=== PATIENT | male | born 1975 | race Caucasian/White ===

== ENCOUNTER 2022-08-02 18:23 | Emergency (ER) | payer MEDICARE ==
[2022-08-02] MEDS ORDERED: Ondansetron PF 4 MG/2 ML Vial ONE (19:25)
[2022-08-02 19:36] LABS: #Eosinphils 0.3 thou/uL (0.0-0.7); #Lymphocytes 1.5 thou/uL (1.20-3.40); #Monocytes 0.8 thou/uL (0.11-0.59); #Neutrophils 8.7 thou/uL (1.40-6.50); %Basophils 0.2 % (0.0-1.0); %Eosinophils 2.2 % (0.0-10.0); %Lymphocytes 13.1 % (21.0-51.0); %Monocytes 7.1 % (0.0-10.0); %Neutrophils 77.4 % (42.0-75.0); Hemoglobin 15.6 g/dL (14.0-18.0); Mean Corpuscular HGB CONC 31.5 g/dL (32.0-36.0); Mean Corpuscular Hemoglobin 30.5 pg (27.0-31.0); Mean Corpuscular Volume 96.8 fl (78.0-98.0); Mean Platelet Volume 8.9 fL (7.4-10.4); Platelet Count 363 10x3/uL (130-400); RBC Distribution Width 14.8 % (11.5-14.5); Red Blood Cell (RBC) Count 5.11 mill/uL (4.70-6.10); White Blood Cell (WBC) Count 11.3 10x3/uL (4.8-10.8)
[2022-08-02 20:02] LABS: ALT (SGPT) 40 U/L (8-55); AST (SGOT) 35 U/L (5-34); Albumin 3.7 g/dL (3.5-5.0); Alkaline Phosphatase 58 U/L (40-110); Anion Gap 12 mmol/L (10-20); BUN (Urea Nitrogen) 15 mg/dL (8.9-20.6); Bilirubin, Total 0.6 mg/dL (0.2-1.2); Calc. Creatinine Clearance 0 mL/min (70-130); Calcium 8.7 mg/dL (7.8-10.44); Carbon Dioxide 27 mmol/L (22-29); Chloride 102 mmol/L (98-107); Estimated GFR 109; Globulin 3.9 g/dL (2.4-3.5); Glucose 100 mg/dL (70-105); Lipase 6 U/L (8-78); Potassium 4.3 mmol/L (3.5-5.1); Protein, Total 7.6 g/dL (6.0-8.3); Sodium 137 mmol/L (136-145)
[2022-08-02 22:24] LABS: Bilirubin Negative (Negative); Blood, Urine Negative (Negative); Clarity Clear (Clear); Glucose, Urine (Dipstick) Normal (Negative); Ketone, Urine Negative (Negative); Leukocyte Negative Leu/uL (Negative); Nitrite Negative (Negative); Protein, Urine (Dipstick) Negative (Neg-Trace); Specific Gravity, Urine 1.025 (1.002-1.036); Urobilinogen Normal mg/dL (Less than 2)
== END 2022-08-02 22:38 | disposition home or self-care (01) ==
LOC: ERS 18:23
DX: R55 Syncope and collapse (principal); R11.2 Nausea with vomiting, unspecified; I10 Essential (primary) hypertension; F17.220 Nicotine dependence, chewing tobacco, uncomplicated
CPT/HCPCS: 36415; 70450; 71045; 80053; 81003; 83605; 83690; 84484; 85025; 87040; 93005; 96361; 96374; J2405

== ENCOUNTER 2022-10-05 18:34 | Inpatient (IN) | payer MEDICARE, OTHER, SELFPAY ==
[~2022-10-05 18:34] MED LIST: Iopamidol-370 76% 500 ML 1 ML ONE
[2022-10-05 19:59] LABS: #Basophils 0.1 thou/uL (0.0-0.2); #Eosinphils 0.8 thou/uL (0.0-0.7); #Lymphocytes 3.9 thou/uL (1.20-3.40); #Monocytes 1.6 thou/uL (0.11-0.59); #Neutrophils 6.6 thou/uL (1.40-6.50); %Basophils 0.6 % (0.0-1.0); %Lymphocytes 30.2 % (21.0-51.0); %Monocytes 12.3 % (0.0-10.0); %Neutrophils 50.8 % (42.0-75.0); Mean Corpuscular HGB CONC 31.3 g/dL (32.0-36.0); Mean Corpuscular Hemoglobin 30.6 pg (27.0-31.0); Mean Corpuscular Volume 97.8 fl (78.0-98.0); Mean Platelet Volume 8.7 fL (7.4-10.4); Platelet Count 364 10x3/uL (130-400); RBC Distribution Width 14.8 % (11.5-14.5); Red Blood Cell (RBC) Count 4.89 mill/uL (4.70-6.10)
[2022-10-05 20:23] LABS: ALT (SGPT) 31 U/L (8-55); AST (SGOT) 25 U/L (5-34); Albumin 3.7 g/dL (3.5-5.0); Alkaline Phosphatase 53 U/L (40-110); Anion Gap 12 mmol/L (10-20); BUN (Urea Nitrogen) 12 mg/dL (8.9-20.6); Bilirubin, Total 0.5 mg/dL (0.2-1.2); Calc. Creatinine Clearance 0 mL/min (70-130); Carbon Dioxide 27 mmol/L (22-29); Chloride 104 mmol/L (98-107); Estimated GFR 73; Globulin 3.3 g/dL (2.4-3.5); Glucose 84 mg/dL (70-105); Potassium 4.4 mmol/L (3.5-5.1); Sodium 139 mmol/L (136-145)
[2022-10-05] MEDS ORDERED: Ketorolac Tromethamine 30 MG/ML VIAL ONE (21:22)
[2022-10-05] MEDS ORDERED: Ipratropium/Albuterol 3 ML NEB ONE (21:22)
[2022-10-05] MEDS ORDERED: Furosemide 40 MG/4 ML VIAL ONE (21:22)
[2022-10-05] MEDS ORDERED: Vancomycin 1.5 GRAM/300 ML BAG 1.5 GM in Premix Bag 1 BAG IVPB SCH (21:30)
[2022-10-05] MEDS ORDERED: Ondansetron ODT 4 MG TAB SL PRN (21:45)
[2022-10-05] MEDS ORDERED: Ondansetron PF 4 MG/2 ML Vial IVP PRN (21:45)
[2022-10-05] MEDS ORDERED: Acetaminophen 325 MG TAB PO PRN (21:45)
[2022-10-05 22:43] LABS: Troponin I 0.017 ng/mL (< 0.028)
[2022-10-05 23:21] LABS: SARS-CoV-2 NAA Rapid Test Not Detected (NotDetected)
[2022-10-05] MEDS ORDERED: guaiFENesin/DM ER PO PRN (23:34)
[2022-10-06 00:25] VITALS: BMI 51.3
[2022-10-06] MEDS: guaiFENesin/DM ER PO PRN (01:46)
[2022-10-06] MEDS: Benzonatate 100 MG CAP PO PRN ×2 (02:02→20:42)
[2022-10-06 02:25] LABS: #Basophils 0.1 thou/uL (0.0-0.2); #Eosinphils 0.7 thou/uL (0.0-0.7); #Lymphocytes 4.1 thou/uL (1.20-3.40); #Monocytes 1.5 thou/uL (0.11-0.59); #Neutrophils 5.8 thou/uL (1.40-6.50); %Basophils 0.6 % (0.0-1.0); %Lymphocytes 33.5 % (21.0-51.0); %Monocytes 12.4 % (0.0-10.0); %Neutrophils 47.5 % (42.0-75.0); Hemoglobin 14.7 g/dL (14.0-18.0); Mean Corpuscular HGB CONC 31.6 g/dL (32.0-36.0); Mean Corpuscular Hemoglobin 30.6 pg (27.0-31.0); Mean Corpuscular Volume 96.6 fl (78.0-98.0); Mean Platelet Volume 8.3 fL (7.4-10.4); Platelet Count 380 10x3/uL (130-400); RBC Distribution Width 14.8 % (11.5-14.5); Red Blood Cell (RBC) Count 4.82 mill/uL (4.70-6.10); White Blood Cell (WBC) Count 12.2 10x3/uL (4.8-10.8)
[2022-10-06 02:50] LABS: Troponin I 0.012 ng/mL (< 0.028)
[2022-10-06 02:56] LABS: Anion Gap 14 mmol/L (10-20); BUN (Urea Nitrogen) 14 mg/dL (8.9-20.6); Calc. Creatinine Clearance 242 mL/min (70-130); Calcium 8.9 mg/dL (7.8-10.44); Carbon Dioxide 26 mmol/L (22-29); Chloride 101 mmol/L (98-107); Estimated GFR 87; Glucose 101 mg/dL (70-105); Potassium 3.8 mmol/L (3.5-5.1); Sodium 137 mmol/L (136-145)
[2022-10-06] MEDS: Vancomycin 1.5 GRAM/300 ML BAG 1.5 GM in Premix Bag 1 BAG IVPB SCH ×3 (04:44→20:10)
[2022-10-06] MEDS: Furosemide 20 MG/2 ML VIAL SLOW IVP SCH ×2 (06:34→13:11)
[2022-10-06] MEDS: Phenytoin Extended Release 100 MG CAP PO SCH (08:39)
[2022-10-06] MEDS ORDERED: FLU VACC QS2022-23(6MOS UP)/PF 60 MCG/0.5 ML SYRINGE IM ONE (09:00)
[2022-10-06] MEDS: Ibuprofen 800 MG TAB PO PRN ×2 (13:18→20:19)
[2022-10-06] MEDS: Gabapentin 300 MG CAP PO SCH (20:10)
[2022-10-06] MEDS: Cyclobenzaprine 10 MG TAB PO PRN (20:20)
[2022-10-06] MEDS: Ipratropium/Albuterol 3 ML NEB NEB PRN ×2 (21:25→23:32)
[2022-10-07 03:40] LABS: #Basophils 0.1 thou/uL (0.0-0.2); #Lymphocytes 3.2 thou/uL (1.20-3.40); #Monocytes 1.4 thou/uL (0.11-0.59); #Neutrophils 6.7 thou/uL (1.40-6.50); %Basophils 0.8 % (0.0-1.0); %Eosinophils 7.8 % (0.0-10.0); %Lymphocytes 25.8 % (21.0-51.0); %Neutrophils 54.6 % (42.0-75.0); Hemoglobin 15.7 g/dL (14.0-18.0); Mean Corpuscular HGB CONC 31.4 g/dL (32.0-36.0); Mean Corpuscular Hemoglobin 31.1 pg (27.0-31.0); Mean Platelet Volume 8.3 fL (7.4-10.4); Platelet Count 365 10x3/uL (130-400); RBC Distribution Width 14.9 % (11.5-14.5); Red Blood Cell (RBC) Count 5.04 mill/uL (4.70-6.10); White Blood Cell (WBC) Count 12.3 10x3/uL (4.8-10.8)
[2022-10-07 03:58] LABS: Anion Gap 14 mmol/L (10-20); BUN (Urea Nitrogen) 14 mg/dL (8.9-20.6); Calc. Creatinine Clearance 288 mL/min (70-130); Carbon Dioxide 24 mmol/L (22-29); Chloride 103 mmol/L (98-107); Estimated GFR 107; Glucose 110 mg/dL (70-105); Potassium 4.1 mmol/L (3.5-5.1); Sodium 137 mmol/L (136-145)
[2022-10-07] MEDS: Vancomycin 1.5 GRAM/300 ML BAG 1.5 GM in Premix Bag 1 BAG IVPB SCH (04:51)
[2022-10-07] MEDS: Furosemide 20 MG/2 ML VIAL SLOW IVP SCH (05:37)
[2022-10-07] MEDS: Benzonatate 100 MG CAP PO PRN ×3 (06:11→21:58)
[2022-10-07] MEDS: Gabapentin 300 MG CAP PO SCH ×2 (08:10→21:03)
[2022-10-07] MEDS: Cyclobenzaprine 10 MG TAB PO SCH (08:11)
[2022-10-07] MEDS: Phenytoin Extended Release 100 MG CAP PO SCH (08:11)
[2022-10-07] MEDS: Ipratropium/Albuterol 3 ML NEB NEB PRN (08:46)
[2022-10-07] MEDS ORDERED: PHENYTOIN 30 MG PO SCH (09:00)
[2022-10-07] MEDS ORDERED: Bisoprolol Fumarate/HCTZ 10 mg/6.25 mg Tablet PO SCH (09:00)
[2022-10-07] MEDS ORDERED: VANCOMYCIN 1.75 GM/500 ML BAG 1.75 GM in Premix Bag 1 BAG IVPB SCH (09:00)
[2022-10-07] MEDS ORDERED: Albuterol 200 PUFF (6.7GM INHALER) INH PRN (12:13)
[2022-10-07] MEDS ORDERED: Mag-Al Plus 1200 MG/1200 MG/120 MG/30 ML UDCUP PO PRN (12:14)
[2022-10-07] MEDS ORDERED: Ibuprofen 800 MG TAB PO PRN (12:15)
[2022-10-07] MEDS ORDERED: Ibuprofen 200 MG TAB PO PRN (12:20)
[2022-10-07] MEDS: Ipratropium/Albuterol 3 ML NEB NEB SCH ×2 (12:29→18:51)
[2022-10-07] MEDS: methylPREDNISolone Sod Succ 40 MG VIAL IVP SCH ×2 (13:55→21:04)
[2022-10-07] MEDS: Furosemide 40 MG TAB PO SCH (13:55)
[2022-10-07] MEDS: guaiFENesin/DM ER PO PRN (13:55)
[2022-10-07] MEDS ORDERED: Furosemide 20 MG TAB PO SCH (14:00)
[2022-10-07] MEDS: Cephalexin 250 MG CAP PO SCH ×2 (17:53→21:03)
[2022-10-07] MEDS: Cyclobenzaprine 10 MG TAB PO PRN (21:08)
[2022-10-08] MEDS: guaiFENesin/DM ER PO PRN ×2 (01:38→21:04)
[2022-10-08 04:57] LABS: #Lymphocytes 2.3 thou/uL (1.20-3.40); #Monocytes 0.7 thou/uL (0.11-0.59); %Basophils 0.1 % (0.0-1.0); %Eosinophils 0.2 % (0.0-10.0); %Lymphocytes 14.4 % (21.0-51.0); %Monocytes 4.3 % (0.0-10.0); Hemoglobin 15.4 g/dL (14.0-18.0); Mean Corpuscular HGB CONC 32.1 g/dL (32.0-36.0); Mean Corpuscular Hemoglobin 31.4 pg (27.0-31.0); Mean Corpuscular Volume 97.6 fl (78.0-98.0); Platelet Count 376 10x3/uL (130-400); RBC Distribution Width 14.8 % (11.5-14.5); Red Blood Cell (RBC) Count 4.92 mill/uL (4.70-6.10)
[2022-10-08] MEDS: Benzonatate 100 MG CAP PO PRN ×2 (05:03→21:04)
[2022-10-08] MEDS: methylPREDNISolone Sod Succ 40 MG VIAL IVP SCH ×3 (05:03→21:58)
[2022-10-08 05:14] LABS: Anion Gap 15 mmol/L (10-20); BUN (Urea Nitrogen) 18 mg/dL (8.9-20.6); Calc. Creatinine Clearance 282 mL/min (70-130); Calcium 9.6 mg/dL (7.8-10.44); Carbon Dioxide 26 mmol/L (22-29); Chloride 99 mmol/L (98-107); Estimated GFR 106; Glucose 141 mg/dL (70-105); Potassium 4.3 mmol/L (3.5-5.1); Sodium 136 mmol/L (136-145)
[2022-10-08] MEDS: Ipratropium/Albuterol 3 ML NEB NEB SCH ×3 (06:41→19:02)
[2022-10-08] MEDS ORDERED: Sodium Chloride 0.9% 1,000 ML IV SCH (07:30)
[2022-10-08] MEDS: Bisoprolol Fumarate 5 MG TAB PO SCH (09:21)
[2022-10-08] MEDS: Cephalexin 250 MG CAP PO SCH ×4 (09:22→21:58)
[2022-10-08] MEDS: Cyclobenzaprine 10 MG TAB PO SCH (09:22)
[2022-10-08] MEDS: Furosemide 40 MG TAB PO SCH ×2 (09:23→14:38)
[2022-10-08] MEDS: Gabapentin 300 MG CAP PO SCH ×2 (09:23→21:04)
[2022-10-08] MEDS: Phenytoin Extended Release 100 MG CAP PO SCH (09:24)
[2022-10-08] MEDS ORDERED: Albuterol 200 PUFF (6.7GM INHALER) INH SCH (19:00)
[2022-10-08] MEDS: Cyclobenzaprine 10 MG TAB PO PRN (21:05)
[2022-10-09] MEDS: Benzonatate 100 MG CAP PO PRN (04:58)
[2022-10-09] MEDS: methylPREDNISolone Sod Succ 40 MG VIAL IVP SCH (05:00)
[2022-10-09] MEDS: Ipratropium/Albuterol 3 ML NEB NEB SCH ×2 (07:22→13:20)
[2022-10-09 08:30] VITALS: TEMP 97.9
[2022-10-09] MEDS: Cephalexin 250 MG CAP PO SCH (09:21)
[2022-10-09] MEDS: Gabapentin 300 MG CAP PO SCH (09:22)
[2022-10-09] MEDS: Bisoprolol Fumarate 5 MG TAB PO SCH (09:22)
[2022-10-09] MEDS: Phenytoin Extended Release 100 MG CAP PO SCH (09:22)
[2022-10-09] MEDS: Furosemide 40 MG TAB PO SCH (09:22)
[2022-10-09] MEDS: Cyclobenzaprine 10 MG TAB PO SCH (09:22)
[2022-10-09 11:49] VITALS: BP 138/81
== END 2022-10-09 13:55 | disposition home or self-care (01) | DRG 205 ==
LOC: ERS 18:34 → 2NO 21:37
PROVIDERS: ADMIT Internal Medicine; ATTEND Internal Medicine
PROC: 5A09357 Assistance with Respiratory Ventilation, Less than 24 Consecutive Hours, Continuous Positive Airway Pressure (ICD-10-PCS; principal; 2022-10-05)
DX: E66.2 Morbid (severe) obesity with alveolar hypoventilation (principal); J96.21 Acute and chronic respiratory failure with hypoxia; L03.311 Cellulitis of abdominal wall; Z68.43 Body mass index [BMI] 50.0-59.9, adult; Z20.822 Contact with and (suspected) exposure to COVID-19; I10 Essential (primary) hypertension; G40.909 Epilepsy, unspecified, not intractable, without status epilepticus; K21.9 Gastro-esophageal reflux disease without esophagitis; G62.9 Polyneuropathy, unspecified; F17.220 Nicotine dependence, chewing tobacco, uncomplicated; R91.8 Other nonspecific abnormal finding of lung field; Z28.21 Immunization not carried out because of patient refusal; Z88.8 Allergy status to other drugs, medicaments and biological substances; Z86.711 Personal history of pulmonary embolism; Z86.718 Personal history of other venous thrombosis and embolism; Z85.47 Personal history of malignant neoplasm of testis; Z90.79 Acquired absence of other genital organ(s); Z90.49 Acquired absence of other specified parts of digestive tract; Z98.890 Other specified postprocedural states; Z82.3 Family history of stroke; Z80.9 Family history of malignant neoplasm, unspecified; Z91.199 Patient's noncompliance with other medical treatment and regimen due to unspecified reason; Z99.89 Dependence on other enabling machines and devices
CPT/HCPCS: 36415; 71045; 71275; 80048; 80053; 80202; 83605; 83880; 84484; 85025; 86140; 87040; 93005; 93306; 94640; 96374; 96375; J1650; J1885; J1940; J2920; J3370; J7050; J7611; J7620; Q9967

== ENCOUNTER 2022-10-30 18:44 | Inpatient (IN) | payer OTHER ==
[2022-10-30 19:38] LABS: Mean Corpuscular Hemoglobin 31.6 pg (27.0-31.0); Mean Corpuscular Volume 98.9 fl (78.0-98.0); Mean Platelet Volume 9.5 fL (7.4-10.4); Platelet Count 198 10x3/uL (130-400); RBC Distribution Width 13.8 % (11.5-14.5); Red Blood Cell (RBC) Count 4.73 mill/uL (4.70-6.10); White Blood Cell (WBC) Count 13.2 10x3/uL (4.8-10.8)
[2022-10-30 19:54] LABS: ALT (SGPT) 43 U/L (8-55); AST (SGOT) 26 U/L (5-34); Albumin 4.1 g/dL (3.5-5.0); Alkaline Phosphatase 56 U/L (40-110); Anion Gap 15 mmol/L (10-20); BUN (Urea Nitrogen) 16 mg/dL (8.9-20.6); Bilirubin, Total 0.5 mg/dL (0.2-1.2); Calc. Creatinine Clearance 0 mL/min (70-130); Carbon Dioxide 25 mmol/L (22-29); Chloride 103 mmol/L (98-107); Estimated GFR 105; Globulin 3.7 g/dL (2.4-3.5); Glucose 86 mg/dL (70-105); Potassium 4.4 mmol/L (3.5-5.1); Protein, Total 7.8 g/dL (6.0-8.3); Sodium 139 mmol/L (136-145)
[2022-10-30 20:06] LABS: Band 1 % (5-11); Eosinophils 8 % (0-10); Lymphocytes 19 % (21-51); MDiff Complete? YES; Monocytes 9 % (0-10); Neutrophil 51 % (42-75); Platelet Morphology Comment Appears Adequate; Polychromasia SLIGHT = 2-3 cells (100X) (0-2/hpf); Reactive Lymphocytes 11 % (0-10)
[2022-10-30 20:24] LABS: Bilirubin Negative (Negative); Blood, Urine Negative (Negative); Clarity Clear (Clear); Glucose, Urine (Dipstick) Normal (Negative); Ketone, Urine Negative (Negative); Leukocyte Negative Leu/uL (Negative); Nitrite Negative (Negative); Protein, Urine (Dipstick) Negative (Neg-Trace); Specific Gravity, Urine 1.022 (1.002-1.036); Urobilinogen Normal mg/dL (Less than 2); pH, Urine 6.5 (5.0-9.0)
[2022-10-30] MEDS ORDERED: Furosemide 40 MG/4 ML VIAL ONE (20:50)
[2022-10-30] MEDS ORDERED: Nitroglycerin 2% Ointment 1 INCH/1 GM Packet ONE (20:50)
[2022-10-30] MEDS ORDERED: hydrALAZINE 20 MG/ML VIAL ONE (22:59)
[2022-10-30] MEDS ORDERED: Vancomycin 1 GM/200 ML (FROZEN) BAG ONE (22:59)
[2022-10-30] MEDS ORDERED: Calcium Carbonate 500 MG ChewTAB PO PRN (23:50)
[2022-10-30] MEDS ORDERED: Ondansetron PF 4 MG/2 ML Vial IVP PRN (23:50)
[2022-10-30] MEDS ORDERED: Senokot S 8.6-50 MG TAB PO PRN (23:50)
[2022-10-30] MEDS ORDERED: Acetaminophen 325 MG TAB PO PRN (23:50)
[2022-10-30] MEDS ORDERED: Ondansetron ODT 4 MG TAB PO PRN (23:50)
[2022-10-31] MEDS: HYDROcodone/Acetaminophen 7.5/325 mg Tablet PO PRN ×4 (01:01→20:56)
[2022-10-31] MEDS: Nicotine 14 MG PATCH TD SCH ×2 (01:05→23:26)
[2022-10-31] MEDS: Guaifenesin DM 100-10/5 ML UDCUP PO PRN ×3 (01:05→17:20)
[2022-10-31 01:49] VITALS: BMI 54.2
[2022-10-31] MEDS: Ipratropium/Albuterol 3 ML NEB NEB SCH ×4 (02:31→19:08)
[2022-10-31 05:34] LABS: #Basophils 0.1 thou/uL (0.0-0.2); #Eosinphils 0.9 thou/uL (0.0-0.7); #Lymphocytes 2.8 thou/uL (1.20-3.40); #Monocytes 1.2 thou/uL (0.11-0.59); #Neutrophils 5.8 thou/uL (1.40-6.50); %Basophils 0.9 % (0.0-1.0); %Lymphocytes 26.2 % (21.0-51.0); %Monocytes 10.9 % (0.0-10.0); Hemoglobin 14.2 g/dL (14.0-18.0); Mean Corpuscular Hemoglobin 31.7 pg (27.0-31.0); Mean Platelet Volume 8.6 fL (7.4-10.4); Platelet Count 320 10x3/uL (130-400); RBC Distribution Width 13.9 % (11.5-14.5); Red Blood Cell (RBC) Count 4.49 mill/uL (4.70-6.10); White Blood Cell (WBC) Count 10.7 10x3/uL (4.8-10.8)
[2022-10-31 05:53] LABS: Anion Gap 13 mmol/L (10-20); BUN (Urea Nitrogen) 16 mg/dL (8.9-20.6); Calc. Creatinine Clearance 298 mL/min (70-130); Carbon Dioxide 29 mmol/L (22-29); Chloride 100 mmol/L (98-107); Estimated GFR 105; Glucose 112 mg/dL (70-105); Potassium 3.4 mmol/L (3.5-5.1); Sodium 139 mmol/L (136-145)
[2022-10-31] MEDS: Furosemide 20 MG/2 ML VIAL SLOW IVP SCH ×2 (06:02→14:58)
[2022-10-31] MEDS ORDERED: VANCOMYCIN 2 GRAM/500 ML BAG 2 GM in Premix Bag 1 BAG IVPB SCH ×2 (08:00→16:00)
[2022-10-31] MEDS ORDERED: Potassium Chloride 20 MEQ TAB PO SCH (08:15)
[2022-10-31 08:42] LABS: Magnesium 1.7 mg/dL (1.6-2.6)
[2022-10-31] MEDS: hydrALAZINE 25 MG TAB PO SCH ×2 (08:46→20:57)
[2022-10-31] MEDS: Cefepime 2 GM in Sodium Chloride 0.9% 100 ML IVPB SCH ×2 (10:18→23:26)
[2022-10-31] MEDS ORDERED: Ketorolac Tromethamine 10 MG TAB PO SCH (11:15)
[2022-10-31] MEDS ORDERED: Albuterol 2.5 MG/0.5 ML NEB NEB PRN (14:58)
[2022-10-31] MEDS ORDERED: Ketorolac Tromethamine 10 MG TAB PO PRN (17:47)
[2022-10-31] MEDS: Terazosin HCl 5 MG CAP PO SCH (20:57)
[2022-10-31] MEDS: Phenytoin Extended Release 100 MG CAP PO SCH (20:57)
[2022-10-31 23:46] LABS: Vancomycin, Trough 18.1 ug/mL
[2022-11-01] MEDS: Ketorolac Tromethamine 10 MG TAB PO PRN ×2 (00:28→20:37)
[2022-11-01] MEDS: HYDROcodone/Acetaminophen 7.5/325 mg Tablet PO PRN ×3 (01:13→14:47)
[2022-11-01] MEDS: Ipratropium/Albuterol 3 ML NEB NEB SCH ×4 (01:20→19:25)
[2022-11-01 05:18] LABS: #Basophils 0.1 thou/uL (0.0-0.2); #Lymphocytes 2.6 thou/uL (1.20-3.40); #Monocytes 1.3 thou/uL (0.11-0.59); #Neutrophils 5.1 thou/uL (1.40-6.50); %Basophils 0.6 % (0.0-1.0); %Eosinophils 9.9 % (0.0-10.0); %Lymphocytes 25.4 % (21.0-51.0); %Neutrophils 51.1 % (42.0-75.0); Hemoglobin 13.9 g/dL (14.0-18.0); Mean Corpuscular HGB CONC 31.8 g/dL (32.0-36.0); Mean Corpuscular Hemoglobin 31.6 pg (27.0-31.0); Mean Corpuscular Volume 99.4 fl (78.0-98.0); Mean Platelet Volume 8.5 fL (7.4-10.4); Platelet Count 321 10x3/uL (130-400); RBC Distribution Width 13.7 % (11.5-14.5); Red Blood Cell (RBC) Count 4.41 mill/uL (4.70-6.10)
[2022-11-01] MEDS: Furosemide 20 MG/2 ML VIAL SLOW IVP SCH ×2 (05:22→14:47)
[2022-11-01] MEDS: tiZANidine HCl 4 MG TAB PO PRN ×2 (05:32→20:42)
[2022-11-01] MEDS: Guaifenesin DM 100-10/5 ML UDCUP PO PRN ×2 (05:33→20:38)
[2022-11-01 05:44] LABS: Phosphorus 4.5 mg/dL (2.3-4.7)
[2022-11-01 05:59] LABS: ALT (SGPT) 35 U/L (8-55); AST (SGOT) 23 U/L (5-34); Albumin 3.8 g/dL (3.5-5.0); Alkaline Phosphatase 52 U/L (40-110); Anion Gap 13 mmol/L (10-20); BUN (Urea Nitrogen) 22 mg/dL (8.9-20.6); Bilirubin, Total 0.5 mg/dL (0.2-1.2); Calc. Creatinine Clearance 223 mL/min (70-130); Calcium 8.7 mg/dL (7.8-10.44); Carbon Dioxide 28 mmol/L (22-29); Chloride 102 mmol/L (98-107); Estimated GFR 74; Globulin 3.5 g/dL (2.4-3.5); Glucose 121 mg/dL (70-105); Magnesium 1.9 mg/dL (1.6-2.6); Potassium 4.3 mmol/L (3.5-5.1); Protein, Total 7.3 g/dL (6.0-8.3); Sodium 139 mmol/L (136-145)
[2022-11-01] MEDS: Cyclobenzaprine 10 MG TAB PO SCH (09:06)
[2022-11-01] MEDS: hydrALAZINE 25 MG TAB PO SCH ×2 (09:06→20:38)
[2022-11-01] MEDS: Bisoprolol Fumarate 5 MG TAB PO SCH (09:07)
[2022-11-01] MEDS: Cefepime 2 GM in Sodium Chloride 0.9% 100 ML IVPB SCH ×2 (12:37→23:42)
[2022-11-01] MEDS: Mometasone 100 MCG/Formoterol 5 MCG 120 PUFF INHALER INH SCH (19:28)
[2022-11-01] MEDS: Phenytoin Extended Release 100 MG CAP PO SCH (20:38)
[2022-11-01] MEDS: Terazosin HCl 5 MG CAP PO SCH (20:38)
[2022-11-01] MEDS: Nicotine 14 MG PATCH TD SCH (23:42)
[2022-11-02] MEDS: Ipratropium/Albuterol 3 ML NEB NEB SCH ×5 (00:16→21:51)
[2022-11-02 05:23] LABS: Hemoglobin 13.7 g/dL (14.0-18.0); Mean Corpuscular HGB CONC 32.1 g/dL (32.0-36.0); Mean Corpuscular Volume 99.8 fl (78.0-98.0); Mean Platelet Volume 9.1 fL (7.4-10.4); Platelet Count 338 10x3/uL (130-400); RBC Distribution Width 13.7 % (11.5-14.5); Red Blood Cell (RBC) Count 4.29 mill/uL (4.70-6.10); White Blood Cell (WBC) Count 9.5 10x3/uL (4.8-10.8)
[2022-11-02] MEDS: Furosemide 20 MG/2 ML VIAL SLOW IVP SCH (05:40)
[2022-11-02] MEDS: Ketorolac Tromethamine 10 MG TAB PO PRN ×2 (05:49→21:18)
[2022-11-02 05:52] LABS: Anion Gap 14 mmol/L (10-20); BUN (Urea Nitrogen) 26 mg/dL (8.9-20.6); Calc. Creatinine Clearance 240 mL/min (70-130); Calcium 8.7 mg/dL (7.8-10.44); Carbon Dioxide 28 mmol/L (22-29); Chloride 99 mmol/L (98-107); Estimated GFR 81; Glucose 109 mg/dL (70-105); Potassium 4.4 mmol/L (3.5-5.1); Sodium 137 mmol/L (136-145)
[2022-11-02 06:13] LABS: Band 4 % (5-11); Eosinophils 7 % (0-10); Lymphocytes 35 % (21-51); MDiff Complete? YES; Monocytes 14 % (0-10); Myelocyte 1 % (0-0); Neutrophil 38 % (42-75)
[2022-11-02] MEDS: Mometasone 100 MCG/Formoterol 5 MCG 120 PUFF INHALER INH SCH (07:12)
[2022-11-02] MEDS: Bisoprolol Fumarate 5 MG TAB PO SCH (08:59)
[2022-11-02] MEDS: Cyclobenzaprine 10 MG TAB PO SCH (08:59)
[2022-11-02] MEDS ORDERED: Apixaban 2.5 MG TAB PO SCH ×2 (09:00→21:00)
[2022-11-02] MEDS: hydrALAZINE 25 MG TAB PO SCH ×2 (09:00→21:05)
[2022-11-02] MEDS: HYDROcodone/Acetaminophen 7.5/325 mg Tablet PO PRN ×3 (09:00→21:04)
[2022-11-02] MEDS ORDERED: Furosemide 40 MG/4 ML VIAL ONE (11:53)
[2022-11-02] MEDS ORDERED: methylPREDNISolone Sod Succ/PF 110 MG in Sodium Chloride 0.9% 250 ML 250 ML IVPB SCH (12:00)
[2022-11-02] MEDS: Cefepime 2 GM in Sodium Chloride 0.9% 100 ML IVPB SCH ×2 (12:07→23:02)
[2022-11-02] MEDS: methylPREDNISolone Sod Succ/PF 125 MG/2 ML VIAL IVP SCH (12:48)
[2022-11-02] MEDS: Nicotine 14 MG PATCH TD SCH (21:03)
[2022-11-02] MEDS: Terazosin HCl 5 MG CAP PO SCH (21:03)
[2022-11-02] MEDS: Phenytoin Extended Release 100 MG CAP PO SCH (21:04)
[2022-11-02] MEDS: tiZANidine HCl 4 MG TAB PO PRN (21:18)
[2022-11-02] MEDS: Guaifenesin DM 100-10/5 ML UDCUP PO PRN (21:18)
[2022-11-03] MEDS: Ipratropium/Albuterol 3 ML NEB NEB SCH ×6 (02:28→22:59)
[2022-11-03 04:00] LABS: #Basophils 0.1 thou/uL (0.0-0.2); #Lymphocytes 2.1 thou/uL (1.20-3.40); #Monocytes 1.3 thou/uL (0.11-0.59); #Neutrophils 7.2 thou/uL (1.40-6.50); %Basophils 0.5 % (0.0-1.0); %Eosinophils 0.3 % (0.0-10.0); %Lymphocytes 19.4 % (21.0-51.0); %Monocytes 12.5 % (0.0-10.0); %Neutrophils 67.3 % (42.0-75.0); Hemoglobin 13.7 g/dL (14.0-18.0); Mean Corpuscular Hemoglobin 31.8 pg (27.0-31.0); Mean Corpuscular Volume 99.4 fl (78.0-98.0); Mean Platelet Volume 8.9 fL (7.4-10.4); Platelet Count 323 10x3/uL (130-400); RBC Distribution Width 13.7 % (11.5-14.5); White Blood Cell (WBC) Count 10.7 10x3/uL (4.8-10.8)
[2022-11-03 04:28] LABS: Anion Gap 13 mmol/L (10-20); BUN (Urea Nitrogen) 23 mg/dL (8.9-20.6); Calc. Creatinine Clearance 291 mL/min (70-130); Carbon Dioxide 26 mmol/L (22-29); Chloride 102 mmol/L (98-107); Potassium 4.6 mmol/L (3.5-5.1); Sodium 136 mmol/L (136-145)
[2022-11-03 04:29] LABS: ALT (SGPT) 39 U/L (8-55); AST (SGOT) 27 U/L (5-34); Albumin 3.7 g/dL (3.5-5.0); Alkaline Phosphatase 50 U/L (40-110); Bilirubin, Total 0.2 mg/dL (0.2-1.2); Calcium 8.5 mg/dL (7.8-10.44); Estimated GFR 102; Globulin 3.3 g/dL (2.4-3.5); Glucose 134 mg/dL (70-105)
[2022-11-03] MEDS: Mometasone 100 MCG/Formoterol 5 MCG 120 PUFF INHALER INH SCH (07:05)
[2022-11-03] MEDS: predniSONE 20 MG TAB PO SCH (09:26)
[2022-11-03] MEDS: Cyclobenzaprine 10 MG TAB PO SCH (09:26)
[2022-11-03] MEDS: Furosemide 40 MG/4 ML VIAL SLOW IVP SCH (09:27)
[2022-11-03] MEDS: hydrALAZINE 25 MG TAB PO SCH ×2 (09:27→21:36)
[2022-11-03] MEDS: HYDROcodone/Acetaminophen 7.5/325 mg Tablet PO PRN ×2 (09:41→21:35)
[2022-11-03] MEDS: Bisoprolol Fumarate 5 MG TAB PO SCH (09:41)
[2022-11-03] MEDS: Cefepime 2 GM in Sodium Chloride 0.9% 100 ML IVPB SCH ×2 (13:18→23:16)
[2022-11-03] MEDS: methylPREDNISolone Sod Succ/PF 125 MG/2 ML VIAL IVP SCH (13:20)
[2022-11-03] MEDS ORDERED: guaiFENesin ER 600 MG TAB PO SCH (13:34)
[2022-11-03] MEDS: guaiFENesin ER 600 MG TAB PO SCH (21:34)
[2022-11-03] MEDS: Terazosin HCl 5 MG CAP PO SCH (21:35)
[2022-11-03] MEDS: Phenytoin Extended Release 100 MG CAP PO SCH (21:35)
[2022-11-03] MEDS: Guaifenesin DM 100-10/5 ML UDCUP PO PRN (21:37)
[2022-11-03] MEDS: tiZANidine HCl 4 MG TAB PO PRN (21:37)
[2022-11-03] MEDS: Ketorolac Tromethamine 10 MG TAB PO PRN (23:15)
[2022-11-04] MEDS: Ipratropium/Albuterol 3 ML NEB NEB SCH ×6 (02:44→22:11)
[2022-11-04] MEDS: Nicotine 14 MG PATCH TD SCH (05:15)
[2022-11-04] MEDS: predniSONE 20 MG TAB PO SCH (08:49)
[2022-11-04] MEDS: Cyclobenzaprine 10 MG TAB PO SCH (08:49)
[2022-11-04] MEDS: Bisoprolol Fumarate 5 MG TAB PO SCH (08:49)
[2022-11-04] MEDS: HYDROcodone/Acetaminophen 7.5/325 mg Tablet PO PRN ×3 (08:49→21:15)
[2022-11-04] MEDS: hydrALAZINE 25 MG TAB PO SCH ×2 (08:50→21:14)
[2022-11-04] MEDS: guaiFENesin ER 600 MG TAB PO SCH ×2 (08:50→21:14)
[2022-11-04] MEDS: Furosemide 40 MG/4 ML VIAL SLOW IVP SCH (08:50)
[2022-11-04] MEDS: Guaifenesin DM 100-10/5 ML UDCUP PO PRN ×3 (08:56→21:16)
[2022-11-04 09:16] LABS: #Basophils 0.1 thou/uL (0.0-0.2); #Eosinphils 0.1 thou/uL (0.0-0.7); #Lymphocytes 4.4 thou/uL (1.20-3.40); #Monocytes 1.7 thou/uL (0.11-0.59); #Neutrophils 6.6 thou/uL (1.40-6.50); %Basophils 0.7 % (0.0-1.0); %Eosinophils 0.6 % (0.0-10.0); %Lymphocytes 34.1 % (21.0-51.0); %Monocytes 12.8 % (0.0-10.0); %Neutrophils 51.8 % (42.0-75.0); Hemoglobin 13.9 g/dL (14.0-18.0); Mean Corpuscular HGB CONC 32.1 g/dL (32.0-36.0); Mean Corpuscular Hemoglobin 32.1 pg (27.0-31.0); Mean Platelet Volume 8.4 fL (7.4-10.4); Platelet Count 356 10x3/uL (130-400); RBC Distribution Width 13.7 % (11.5-14.5); Red Blood Cell (RBC) Count 4.31 mill/uL (4.70-6.10); White Blood Cell (WBC) Count 12.8 10x3/uL (4.8-10.8)
[2022-11-04 09:43] LABS: Anion Gap 13 mmol/L (10-20); BUN (Urea Nitrogen) 23 mg/dL (8.9-20.6); Calc. Creatinine Clearance 310 mL/min (70-130); Carbon Dioxide 28 mmol/L (22-29); Chloride 102 mmol/L (98-107); Estimated GFR 107; Glucose 88 mg/dL (70-105); Potassium 4.3 mmol/L (3.5-5.1); Sodium 139 mmol/L (136-145)
[2022-11-04] MEDS: Mometasone 100 MCG/Formoterol 5 MCG 120 PUFF INHALER INH SCH (10:50)
[2022-11-04] MEDS: Cephalexin 250 MG CAP PO SCH ×2 (13:25→17:10)
[2022-11-04] MEDS: methylPREDNISolone Sod Succ/PF 125 MG/2 ML VIAL IVP SCH (13:25)
[2022-11-04] MEDS: Phenytoin Extended Release 100 MG CAP PO SCH (21:14)
[2022-11-04] MEDS: tiZANidine HCl 4 MG TAB PO PRN (21:14)
[2022-11-04] MEDS: Terazosin HCl 5 MG CAP PO SCH (21:16)
[2022-11-04] MEDS: Ketorolac Tromethamine 10 MG TAB PO PRN (21:17)
[2022-11-05] MEDS: Nicotine 14 MG PATCH TD SCH ×2 (01:18→23:06)
[2022-11-05] MEDS: Cephalexin 250 MG CAP PO SCH ×5 (01:26→23:03)
[2022-11-05] MEDS: Ipratropium/Albuterol 3 ML NEB NEB SCH ×6 (02:31→22:48)
[2022-11-05] MEDS: predniSONE 20 MG TAB PO SCH (09:15)
[2022-11-05] MEDS: Cyclobenzaprine 10 MG TAB PO SCH (09:15)
[2022-11-05] MEDS: Bisoprolol Fumarate 5 MG TAB PO SCH (09:15)
[2022-11-05] MEDS: hydrALAZINE 25 MG TAB PO SCH ×2 (09:16→20:21)
[2022-11-05] MEDS: Furosemide 40 MG/4 ML VIAL SLOW IVP SCH (09:16)
[2022-11-05] MEDS: guaiFENesin ER 600 MG TAB PO SCH ×2 (09:16→20:22)
[2022-11-05] MEDS: HYDROcodone/Acetaminophen 7.5/325 mg Tablet PO PRN ×3 (09:23→23:03)
[2022-11-05] MEDS: Guaifenesin DM 100-10/5 ML UDCUP PO PRN (09:24)
[2022-11-05] MEDS: Mometasone 100 MCG/Formoterol 5 MCG 120 PUFF INHALER INH SCH (11:00)
[2022-11-05] MEDS ORDERED: Furosemide 40 MG/4 ML VIAL SLOW IVP SCH (18:45)
[2022-11-05] MEDS: Phenytoin Extended Release 100 MG CAP PO SCH (20:21)
[2022-11-05] MEDS: Terazosin HCl 5 MG CAP PO SCH (20:21)
[2022-11-05] MEDS: tiZANidine HCl 4 MG TAB PO PRN (23:03)
[2022-11-06] MEDS: Ipratropium/Albuterol 3 ML NEB NEB SCH ×5 (02:29→21:39)
[2022-11-06] MEDS: HYDROcodone/Acetaminophen 7.5/325 mg Tablet PO PRN ×3 (05:46→23:16)
[2022-11-06] MEDS: Cephalexin 250 MG CAP PO SCH ×4 (05:46→23:16)
[2022-11-06] MEDS: Furosemide 40 MG/4 ML VIAL SLOW IVP SCH ×2 (05:46→13:17)
[2022-11-06] MEDS: Mometasone 100 MCG/Formoterol 5 MCG 120 PUFF INHALER INH SCH (07:54)
[2022-11-06] MEDS: predniSONE 20 MG TAB PO SCH (10:22)
[2022-11-06] MEDS: Cyclobenzaprine 10 MG TAB PO SCH (10:22)
[2022-11-06] MEDS: hydrALAZINE 25 MG TAB PO SCH ×2 (10:23→20:24)
[2022-11-06] MEDS: guaiFENesin ER 600 MG TAB PO SCH ×2 (10:23→20:24)
[2022-11-06] MEDS: Guaifenesin DM 100-10/5 ML UDCUP PO PRN ×2 (10:24→23:26)
[2022-11-06] MEDS: Bisoprolol Fumarate 5 MG TAB PO SCH (10:37)
[2022-11-06] MEDS: Phenytoin Extended Release 100 MG CAP PO SCH (20:24)
[2022-11-06] MEDS: Terazosin HCl 5 MG CAP PO SCH (20:24)
[2022-11-06] MEDS: Nicotine 14 MG PATCH TD SCH (23:16)
[2022-11-06] MEDS: tiZANidine HCl 4 MG TAB PO PRN (23:16)
[2022-11-07] MEDS: Ipratropium/Albuterol 3 ML NEB NEB SCH ×4 (01:33→10:22)
[2022-11-07 04:09] LABS: Hemoglobin 13.8 g/dL (14.0-18.0); Mean Corpuscular HGB CONC 31.3 g/dL (32.0-36.0); Mean Corpuscular Hemoglobin 31.1 pg (27.0-31.0); Mean Corpuscular Volume 99.5 fl (78.0-98.0); Mean Platelet Volume 8.8 fL (7.4-10.4); Platelet Count 351 10x3/uL (130-400); RBC Distribution Width 13.6 % (11.5-14.5); Red Blood Cell (RBC) Count 4.44 mill/uL (4.70-6.10); White Blood Cell (WBC) Count 12.5 10x3/uL (4.8-10.8)
[2022-11-07 04:25] LABS: Anion Gap 13 mmol/L (10-20); BUN (Urea Nitrogen) 29 mg/dL (8.9-20.6); Calc. Creatinine Clearance 306 mL/min (70-130); Carbon Dioxide 31 mmol/L (22-29); Chloride 98 mmol/L (98-107); Estimated GFR 106; Glucose 86 mg/dL (70-105); Potassium 3.9 mmol/L (3.5-5.1); Sodium 138 mmol/L (136-145)
[2022-11-07] MEDS: Furosemide 40 MG/4 ML VIAL SLOW IVP SCH (06:43)
[2022-11-07] MEDS: HYDROcodone/Acetaminophen 7.5/325 mg Tablet PO PRN (06:44)
[2022-11-07] MEDS: Cephalexin 250 MG CAP PO SCH (06:44)
[2022-11-07] MEDS: Mometasone 100 MCG/Formoterol 5 MCG 120 PUFF INHALER INH SCH (08:05)
[2022-11-07 08:12] VITALS: TEMP 97.3
[2022-11-07] MEDS: predniSONE 20 MG TAB PO SCH (08:25)
[2022-11-07] MEDS: Cyclobenzaprine 10 MG TAB PO SCH (08:25)
[2022-11-07] MEDS: hydrALAZINE 25 MG TAB PO SCH (08:26)
[2022-11-07] MEDS: guaiFENesin ER 600 MG TAB PO SCH (08:26)
[2022-11-07] MEDS: Bisoprolol Fumarate 5 MG TAB PO SCH (08:27)
[2022-11-07 08:29] VITALS: BP 160/102
[2022-11-07 08:30] LABS: Troponin I Less than 0.010 ng/mL (< 0.028)
[2022-11-07] MEDS: Guaifenesin DM 100-10/5 ML UDCUP PO PRN (10:10)
== END 2022-11-07 13:08 | disposition home or self-care (01) | DRG 602 ==
LOC: ERS 18:44 → NEURO 22:40 → IMCU/EMU 11-02 15:52
PROVIDERS: ADMIT Internal Medicine; ATTEND Family Medicine
PROC: 5A09457 Assistance with Respiratory Ventilation, 24-96 Consecutive Hours, Continuous Positive Airway Pressure (ICD-10-PCS; principal; 2022-11-02)
DX: L03.311 Cellulitis of abdominal wall (principal); J96.21 Acute and chronic respiratory failure with hypoxia; Z68.43 Body mass index [BMI] 50.0-59.9, adult; I10 Essential (primary) hypertension; K21.9 Gastro-esophageal reflux disease without esophagitis; G62.9 Polyneuropathy, unspecified; G40.909 Epilepsy, unspecified, not intractable, without status epilepticus; F41.9 Anxiety disorder, unspecified; F32.A Depression, unspecified; F17.220 Nicotine dependence, chewing tobacco, uncomplicated; G47.33 Obstructive sleep apnea (adult) (pediatric); E66.01 Morbid (severe) obesity due to excess calories; G89.29 Other chronic pain; T38.0X5A Adverse effect of glucocorticoids and synthetic analogues, initial encounter; I89.0 Lymphedema, not elsewhere classified; Z20.822 Contact with and (suspected) exposure to COVID-19; Z88.8 Allergy status to other drugs, medicaments and biological substances; Z98.890 Other specified postprocedural states; Z90.81 Acquired absence of spleen; Z79.51 Long term (current) use of inhaled steroids; Z79.899 Other long term (current) drug therapy
CPT/HCPCS: 36415; 71045; 76705; 80048; 80053; 80202; 81003; 83605; 83735; 83880; 84100; 84145; 84484; 85025; 85027; 85379; 87040; 87081; 87811; 93005; 93010; 93970; 94640; 94660; 94664; 96365; 96375; 97139; J0360; J0692; J1650; J1940; J2930; J3370; J3370-JW; J3490; J7512; J7620; U0003; U0005